=== PATIENT | female | born 1935 | race Native Hawaiian/Other Pacific Islander ===

== ENCOUNTER 2021-11-29 22:44 | Emergency (ER) | payer OTHER ==
[~2021-11-29] VITALS: Ht 152.4 cm; Wt 84.4 kg
[2021-11-29 23:21] LABS: PLATELET COUNT 178 K/uL (152-353)
[2021-11-30 00:15] VITALS: BP 103/76; TEMP 98.9
[2021-12-01] MEDS ORDERED: AMLODIPINE BESYLATE PO (15:30)
[2021-12-01] MEDS ORDERED: ACETAMINOPHEN PO ×2 (15:31→15:32)
[2021-12-01] MEDS ORDERED: TYLENOL325 MG PO (15:33)
[2021-12-01] MEDS ORDERED: ALUM-67 PO (15:34)
[2021-12-01] MEDS ORDERED: ASPIRIN81 M2 PO (15:35)
[2021-12-01] MEDS ORDERED: AZELASTINE HCL0.1 % NAS (15:38)
[2021-12-01] MEDS ORDERED: DULOXETINE HCL20 MG PO (15:39)
[2021-12-01] MEDS ORDERED: HYDROCHLOROT12.5 M1 PO (15:40)
[2021-12-01] MEDS ORDERED: BISA10SU8 PR (15:42)
[2021-12-01] MEDS ORDERED: FLAXSEED PO (15:44)
[2021-12-01] MEDS ORDERED: FERROUS GLUC324 M1 PO (15:44)
[2021-12-01] MEDS ORDERED: FLEET ENEMA PR (15:45)
[2021-12-01] MEDS ORDERED: GUAIFENESIN PO (15:47)
[2021-12-01] MEDS ORDERED: DEX PO (15:47)
[2021-12-01] MEDS ORDERED: IMODIUM A-D2 M2 PO (15:51)
[2021-12-01] MEDS ORDERED: MELATONIN5 M2 PO (15:52)
[2021-12-01] MEDS ORDERED: MILK OF MA400 MG/5 M PO (15:54)
[2021-12-01] MEDS ORDERED: MULTIVITAMI1 PO (15:58)
== END 2021-11-30 00:15 | disposition still patient (30) ==
LOC: ED 22:44
PROVIDERS: Emergency Medicine
DX: R46.89 Other symptoms and signs involving appearance and behavior (principal); I10 Essential (primary) hypertension; Z11.52 Encounter for screening for COVID-19; Z04.6 Encounter for general psychiatric examination, requested by authority
CPT/HCPCS: 36415; 80053; 81000; 85027; 87635; 93005; 99283; U0003